=== PATIENT | female | born 1985 | race Caucasian/White ===

== ENCOUNTER 2019-08-10 22:14 | Emergency (ER) | payer BC, MEDICAID ==
[2019-08-10 22:38] VITALS: PULSE 68
--- NOTE | 2019-08-10 22:52 | EDM.PDOC ---
ED HPI GENERAL MEDICAL PROBLEM - General Chief Complaint: ENT Problem Stated Complaint: TOOTH PAIN LEFT SIDE Time Seen by Provider: 08/10/19 22:39 Source of Information: Reports: Patient, RN Notes Reviewed History Limitations: Reports: No Limitations - History of Present Illness INITIAL COMMENTS - FREE TEXT/NARRATIVE: 33-year-old female presents emergency department a complaint of dental pain, she states had dental pain for the last couple days she does have appointment with dentistry tomorrow she has not had any fevers she has had some tenderness in her neck over her lymph nodes dental pain/abscess Pain Score (Numeric/FACES): 9 - Related Data Allergies Allergy/AdvReac Type Severity Reaction Status Date / Time methylphenidate HCl Allergy Cannot Verified 08/10/19 22:33 [From Ritalin] Remember Penicillins Allergy Cannot Verified 08/10/19 22:33 Remember Home Meds: Home Meds NK [No Known Home Meds] 08/13/15 [History] Past Medical History - Past Health History Medical/Surgical History: Denies Medical/Surgical History Social & Family History - Tobacco Use Smoking Status *Q: Never Smoker ED ROS ENT - Review of Systems Review Of Systems: See Below Constitutional: Denies: Fever, Chills HEENT: Reports: Dental Pain Respiratory: Reports: No Symptoms Cardiovascular: Reports: No Symptoms GI/Abdominal: Reports: No Symptoms ED EXAM, ENT - Physical Exam Exam: See Below Text/Narrative:: Mouth mucosa is moist and pink no erythema or exudate known soft palate tongue is midline there is midline dentition appears well she is tender over tooth #9 Exam Limited By: No Limitations General Appearance: Alert, WD/WN, No Apparent Distress Neck: Normal Inspection, Supple, Non-Tender, Full Range of Motion Respiratory/Chest: No Respiratory Distress Course - Vital Signs Last Recorded V/S: Last Vital Signs Temp 97.2 F 08/10/19 22:36 Pulse 68 08/10/19 22:36 Resp 14 08/10/19 22:36 BP Pulse Ox 98 08/10/19 22:36 Departure - Departure Time of Disposition: 22:51 Disposition: Home, Self-Care 01 Condition: Fair Clinical Impression: Dental abscess - Discharge Information Instructions: Dental Abscess Referrals: PCP,None [Primary Care Provider] - Additional Instructions: Take full course of antibiotics, use hydrocodone as needed for pain control, please call dentistry tomorrow for further evaluation Sepsis Event Note - Evaluation Sepsis Screening Result: No Definite Risk - Focused Exam Vital Signs: Vital Signs Temp Pulse Resp Pulse Ox 08/10/19 22:36 97.2 F 68 14 98 Date Exam was Performed: 08/10/19 Time Exam was Performed: 22:49 - Assessment/Plan Plan: Assessment Acuity = acute Site and laterality = dental abscess Etiology = unknown Manifestations = pain Location of injury = Home Lab values = none Plan Elect to treat empirically amoxicillin 500 mg p.o. 3 times daily x10 days with hydrocodone 5/325 1 tab p.o. 3 times daily PRN total #10 we did discuss risks and benefits as well as alternatives did review with this medication with her This note was dictated using [employer] voice recognition software please call with any questions on syntax or grammar.
== END 2019-08-10 22:59 | disposition home or self-care (01) ==
LOC: JP.ED 22:14
DX: K04.7 Periapical abscess without sinus (principal); Z88.8 Allergy status to other drugs, medicaments and biological substances; Z88.0 Allergy status to penicillin
CPT/HCPCS: 99282

== ENCOUNTER 2020-10-24 15:53 | Emergency (ER) | payer MEDICAID, BC ==
[2020-10-24 16:43] VITALS: BP 120/76; PULSE 71
--- NOTE | 2020-10-24 16:59 | EDM.PDOC ---
ED HPI GENERAL MEDICAL PROBLEM - General Chief Complaint: Allergic Reaction Stated Complaint: DIZZY NAUSEA Time Seen by Provider: 10/24/20 16:46 Source of Information: Reports: Patient, Family, RN - History of Present Illness INITIAL COMMENTS - FREE TEXT/NARRATIVE: Anastacia is a 34 year old female presents to ER with weakness, dizziness, tightness in her chest and forgetting to breath which started after eating a CBD gummy after lunch. Anastacia hs been self diagnosed with anxiety and treating with CBD oil but tried a gummy which was likely cause of symptoms onset. Anastacia took a tsp of cinnamon to lower her blood pressure. Anastacia believes she is diabetic and checks her blood sugar at home, with levels around 200 after eating and around 70 before eating. Anastacia self reports goggling lots of medical in formation which has led to her current health concerns. Anastacia report h/o anxiety which she uses CBD oil on a rather routine basis. - Related Data Allergies Allergy/AdvReac Type Severity Reaction Status Date / Time methylphenidate HCl Allergy Cannot Verified 10/24/20 17:04 [From Ritalin] Remember Penicillins Allergy Cannot Verified 10/24/20 17:04 Remember Home Meds: Home Meds Cannabidiol (Cbd) Extract [CBD Oil] 1 dose PO ASDIRECTED 10/24/20 [History] Past Medical History - Past Health History Medical/Surgical History: Denies Medical/Surgical History ED ROS ALLERGIC REACTION - Review of Systems Review Of Systems: Comprehensive ROS is negative, except as noted in HPI. ED EXAM GENERAL NO PERIP PULSE - Physical Exam Exam: See Below Exam Limited By: No Limitations General Appearance: Alert, WD/WN, Anxious, Mild Distress Eye Exam: Bilateral Eye: Normal Inspection Ears: Hearing Grossly Normal Nose: Normal Inspection Throat/Mouth: Normal Voice, No Airway Compromise Neck: Normal Inspection, Full Range of Motion Respiratory/Chest: No Respiratory Distress, Other (rapid breathing noted) Cardiovascular: Normal Peripheral Pulses, Regular Rate, Rhythm GI/Abdominal: Soft Neurological: Alert, Oriented, CN II-XII Intact, Normal Cognition, Normal Gait Psychiatric: Anxious, Flat Affect Skin Exam: Warm, Dry, Intact, Normal Color, No Rash Course - Vital Signs Last Recorded V/S: Last Vital Signs Temp 36.6 C 10/24/20 16:58 Pulse 71 10/24/20 16:58 Resp 12 10/24/20 16:58 BP 120/76 10/24/20 16:58 Pulse Ox 100 10/24/20 16:58 - Orders/Labs/Meds Orders: Active Orders 24 hr Category Date Time Status Peripheral IV Care [RC] . DIRECTED Care 10/24/20 17:20 Active Sodium Chloride 0.9% [Normal Saline] 1,000 ml Med 10/24/20 17:30 Active IV ASDIRECTED Sodium Chloride 0.9% [Saline Flush] Med 10/24/20 17:20 Active 10 ml FLUSH ASDIRECTED PRN Peripheral IV Insertion Adult [OM.PC] Urgent Oth 10/24/20 17:20 Ordered Medication Orders Sodium Chloride (Normal Saline) 1,000 mls @ 500 mls/hr IV ASDIRECTED JEANETTE Last Admin: 10/24/20 18:00 Dose: 500 mls/hr Documented by: MILLY Sodium Chloride (Sodium Chloride 0.9% 10 Ml Syringe) 10 ml FLUSH ASDIRECTED PRN PRN Reason: Keep Vein Open Last Admin: 10/24/20 18:00 Dose: 10 ml Documented by: MILLY Meds: Medications Generic Name Dose Route Start Last Admin Trade Name Freq PRN Reason Stop Dose Admin Sodium Chloride 1,000 mls @ 500 mls/hr 10/24/20 17:30 10/24/20 18:00 Normal Saline IV 500 mls/hr ASDIRECTED JEANETTE Administration Sodium Chloride 10 ml 10/24/20 17:20 10/24/20 18:00 Sodium Chloride 0.9% 10 Ml Syringe FLUSH 10 ml ASDIRECTED PRN Administration Keep Vein Open - Re-Assessments/Exams Free Text/Narrative Re-Assessment/Exam: Discussed options for treatment to what sounds like a panic attack and possible THC overdose causing tachycardia and Gi distress with underlying anxiety history. Offered Vistaril IM for anxiety and nausea but patient declined. Offered IV fluids which patient agreed to receive. Anastacia has been on Xanax in the past but not interested in restarting and control medications. 10/24/20 17:19 Departure - Departure Time of Disposition: 19:24 Disposition: Home, Self-Care 01 Clinical Impression: Anxiety - Discharge Information Instructions: Managing Anxiety, Adult, Panic Attack, Hyperventilation, Supporting Someone With Anxiety, What You Need to Know About Marijuana Use Referrals: PCP,None [Primary Care Provider] - Forms: ED Department Discharge Additional Instructions: 1. Increase fluid intake. 2. Do not use THC as you are very sensitive to the type of THC taken earlier today. 3. Contact PCP for recheck this week to ensure symptoms improving. 4. Return to ER if concern changes new worsening symptoms or new concerns. Sepsis Event Note (ED) - Focused Exam Vital Signs: Vital Signs Temp Pulse Resp BP Pulse Ox 10/24/20 16:58 36.6 C 71 12 120/76 100 10/24/20 16:42 36.6 C 71 12 120/76 100 - My Orders Last 24 Hours: My Active Orders 10/24/20 17:20 Peripheral IV Care [RC] . DIRECTED Sodium Chloride 0.9% [Saline Flush] 10 ml FLUSH ASDIRECTED PRN Peripheral IV Insertion Adult [OM.PC] Urgent 10/24/20 17:30 Sodium Chloride 0.9% [Normal Saline] 1,000 ml IV ASDIRECTED - Assessment/Plan Last 24 Hours: My Active Orders 10/24/20 17:20 Peripheral IV Care [RC] . DIRECTED Sodium Chloride 0.9% [Saline Flush] 10 ml FLUSH ASDIRECTED PRN Peripheral IV Insertion Adult [OM.PC] Urgent 10/24/20 17:30 Sodium Chloride 0.9% [Normal Saline] 1,000 ml IV ASDIRECTED
[2020-10-24] MEDS ORDERED: Sodium Chloride 0.9% 10 ML Syringe FLUSH PRN (17:20)
[2020-10-24] MEDS ORDERED: Sodium Chloride 0.9% 1,000 ML IV SCH (17:30)
== END 2020-10-24 19:37 | disposition home or self-care (01) ==
LOC: JP.ED 15:53
DX: F41.9 Anxiety disorder, unspecified (principal); Z88.0 Allergy status to penicillin; Z88.8 Allergy status to other drugs, medicaments and biological substances
CPT/HCPCS: 99284; J7030